=== PATIENT | male | born 2000 | race Hispanic/Latino ===

== ENCOUNTER 2021-05-20 17:45 | Inpatient (IN) | payer OTHER, SELFPAY ==
[2021-05-20] MEDS ORDERED: FLU VACC QS2021-22(6MOS UP)/PF 60 MCG/0.5 ML SYRINGE IM ONE (19:15)
[2021-05-20] MEDS ORDERED: Sodium Chloride 0.9% 1,000 ML IV PRN ×4 (19:57)
[2021-05-20] MEDS ORDERED: Acetaminophen 325 MG TAB PO PRN (19:57)
[2021-05-20] MEDS ORDERED: D5 1/2 NS w/20 mEq KCL 1,000 ML IV PRN (19:57)
[2021-05-20] MEDS ORDERED: Dextrose 5 %-0.45 % NaCl 1,000 ML IV PRN (19:57)
[2021-05-20] MEDS ORDERED: NS 0.9% w/ 20 MEQ KCL 1,000 ML IV PRN ×2 (19:57)
[2021-05-20] MEDS ORDERED: Electrolyte Replacement Protocol IVPB SCH (19:57)
[2021-05-20] MEDS ORDERED: Acetaminophen 650 MG Suppository PR PRN (19:57)
[2021-05-20] MEDS: Famotidine 20 MG TAB PO SCH (20:29)
[2021-05-20] MEDS: D5 1/2 NS w/20 mEq KCL 1,000 ML IV SCH (20:30)
[2021-05-20] MEDS ORDERED: Enoxaparin Sodium 40 MG/0.4 ML SYRINGE SC SCH (20:30)
[2021-05-20 20:31] LABS: Calcium 9.5 mg/dL (7.8-10.44); Chloride 106 mmol/L (98-107); Potassium 3.3 mmol/L (3.5-5.1); Sodium 134 mmol/L (136-145)
[2021-05-20 20:55] LABS: BUN (Urea Nitrogen) 8 mg/dL (8.4-21.0); Calc. Creatinine Clearance 118 mL/min (70-130); Glucose 288 mg/dL (70-105)
[2021-05-20 20:56] LABS: Carbon Dioxide Less than 8 mmol/L (22-29)
[2021-05-20 21:04] LABS: Cardiac Risk 57.5 (Less than 4.5); Cholesterol 460 mg/dl (< 200 Desired); HDL Cholesterol 8 mg/dL (>60 Neg Risk)
[2021-05-20 21:07] LABS: Lipase 105 U/L (8-78); Triglycerides Greater than 3800 mg/dL (Less than 150)
[2021-05-20 22:31] LABS: Bilirubin Neg (Negative); Blood, Urine Negative (Negative); Clarity Clear (Clear); Glucose, Urine (Dipstick) >=1000 mg/dL (Negative); Ketone, Urine 150 mg/dL (Negative); Leukocyte Negative (Negative); Nitrite Negative (Negative); Protein, Urine (Dipstick) Negative (Neg-Trace); Urobilinogen Normal mg/dL (Less than 2)
[2021-05-20 22:32] LABS: Urine Culture Reflex No No
[2021-05-20 22:39] LABS: Bacteria/HPF None Seen HPF (None Seen); RBC/HPF 0-3 HPF (0-3); Squamous Epithelial 0-3 HPF (0-3); WBC/HPF None Seen HPF (0-3)
[2021-05-20] MEDS: Potassium Chloride 20 MEQ TAB PO SCH (22:58)
[2021-05-21] MEDS: Cephalexin 500 MG CAP PO SCH ×5 (00:05→23:13)
[2021-05-21] MEDS: Potassium Chloride 20 MEQ TAB PO SCH (00:05)
[2021-05-21] MEDS: D5 1/2 NS w/20 mEq KCL 1,000 ML IV SCH ×3 (00:09→08:35)
[2021-05-21 01:09] LABS: Anion Gap 17 mmol/L (10-20); BUN (Urea Nitrogen) 7 mg/dL (8.4-21.0); Calc. Creatinine Clearance 120 mL/min (70-130); Calcium 8.2 mg/dL (7.8-10.44); Carbon Dioxide 13 mmol/L (22-29); Chloride 108 mmol/L (98-107); Glucose 307 mg/dL (70-105); Potassium 3.4 mmol/L (3.5-5.1); Sodium 135 mmol/L (136-145)
[2021-05-21] MEDS: INSULIN REGULAR IN 0.9 % NACL 100 UNIT in Premix Bag 1 BAG IVPB SCH ×2 (02:02→08:36)
[2021-05-21 03:50] LABS: Anion Gap 17 mmol/L (10-20); BUN (Urea Nitrogen) 7 mg/dL (8.4-21.0); Calc. Creatinine Clearance 114 mL/min (70-130); Calcium 8.4 mg/dL (7.8-10.44); Carbon Dioxide 15 mmol/L (22-29); Chloride 109 mmol/L (98-107); Glucose 256 mg/dL (70-105); Sodium 137 mmol/L (136-145)
[2021-05-21 03:52] LABS: Potassium 3.6 mmol/L (3.5-5.1)
[2021-05-21] MEDS ORDERED: Potassium Chloride 20 MEQ TAB PO SCH ×2 (05:30→11:00)
[2021-05-21] MEDS: Fenofibrate Nanocrystallized 145 MG TAB PO SCH (08:36)
[2021-05-21] MEDS: Famotidine 20 MG TAB PO SCH ×2 (08:36→20:10)
[2021-05-21] MEDS: Enoxaparin Sodium 40 MG/0.4 ML SYRINGE SC SCH (08:36)
[2021-05-21 09:20] LABS: Hemoglobin 13.1 g/dL (13.5-17.5); Mean Corpuscular HGB CONC 35.4 g/dL (32.0-36.0); Mean Corpuscular Hemoglobin 33.3 pg (27.0-33.0); Mean Corpuscular Volume 94.2 fl (81.2-95.1); Mean Platelet Volume 11.9 fl (7.4-10.4); Platelet Count 217 10x3/uL (150-450); RBC Distribution Width 13.6 % (11.5-14.5); White Blood Cell (WBC) Count 6.2 10x3/uL (3.5-10.5)
[2021-05-21 09:42] LABS: #Basophils 0.1 10x3/uL (0.0-0.2); #Eosinphils 0.1 10x3/uL (0.0-0.5); #Monocytes 0.4 10x3/uL (0.0-1.1); #Neutrophils 3.3 10x3/uL (1.5-8.4); %Basophils 0.8 % (0.0-2.0); %Eosinophils 1.6 % (0.0-6.0); %Lymphocytes 37.3 % (18.0-47.0); %Monocytes 6.8 % (0.0-10.0)
[2021-05-21 09:47] LABS: Glucose 151 mg/dL (70-105)
[2021-05-21] MEDS ORDERED: INSULIN REGULAR IN 0.9 % NACL 100 UNIT in Premix Bag 1 BAG IVPB SCH (10:16)
[2021-05-21] MEDS ORDERED: Dextrose 50% Abboject 50 ML SYRINGE SLOW IVP PRN (10:22)
[2021-05-21] MEDS ORDERED: Dextrose 5% in Water 1,000 ML IV PRN (10:22)
[2021-05-21 10:46] LABS: Glucose 273 mg/dL (70-105)
[2021-05-21] MEDS ORDERED: Lantus 1000 UNITS/10 ML VIAL SC SCH ×3 (11:00→21:00)
[2021-05-21 11:46] LABS: Hemoglobin A1c 10.6 % (4.0-6.0)
[2021-05-21 12:16] LABS: Anion Gap 12 mmol/L (10-20); BUN (Urea Nitrogen) 7 mg/dL (8.4-21.0); Calc. Creatinine Clearance 139 mL/min (70-130); Calcium 8.4 mg/dL (7.8-10.44); Carbon Dioxide 21 mmol/L (22-29); Chloride 105 mmol/L (98-107); Glucose 284 mg/dL (70-105); Potassium 3.9 mmol/L (3.5-5.1); Sodium 134 mmol/L (136-145)
[2021-05-21] MEDS: HumaLOG 300 UNITS/3 ML VIAL SC PRN ×3 (12:37→23:13)
[2021-05-21 13:02] LABS: Glucose 237 mg/dL (70-105)
[2021-05-21 15:30] LABS: Anion Gap 15 mmol/L (10-20); BUN (Urea Nitrogen) 9 mg/dL (8.4-21.0); Calc. Creatinine Clearance 152 mL/min (70-130); Calcium 8.4 mg/dL (7.8-10.44); Carbon Dioxide 18 mmol/L (22-29); Chloride 105 mmol/L (98-107); Glucose 226 mg/dL (70-105); Potassium 5.3 mmol/L (3.5-5.1); Sodium 133 mmol/L (136-145)
[2021-05-21] MEDS ORDERED: Atorvastatin Calcium 10 MG TAB PO SCH (21:00)
[2021-05-21 22:42] LABS: Anion Gap 17 mmol/L (10-20); BUN (Urea Nitrogen) 8 mg/dL (8.4-21.0); Calc. Creatinine Clearance 145 mL/min (70-130); Calcium 8.8 mg/dL (7.8-10.44); Carbon Dioxide 22 mmol/L (22-29); Chloride 101 mmol/L (98-107); Glucose 193 mg/dL (70-105); Potassium 4.4 mmol/L (3.5-5.1); Sodium 136 mmol/L (136-145)
[2021-05-22 02:03] VITALS: BMI 20.2
[2021-05-22 04:51] LABS: Anion Gap 16 mmol/L (10-20); BUN (Urea Nitrogen) 8 mg/dL (8.4-21.0); Calc. Creatinine Clearance 167 mL/min (70-130); Calcium 8.9 mg/dL (7.8-10.44); Carbon Dioxide 24 mmol/L (22-29); Chloride 101 mmol/L (98-107); Glucose 97 mg/dL (70-105); Sodium 138 mmol/L (136-145)
[2021-05-22 04:53] LABS: Potassium 3.2 mmol/L (3.5-5.1)
[2021-05-22] MEDS: Lantus 1000 UNITS/10 ML VIAL SC SCH ×2 (05:21→14:10)
[2021-05-22] MEDS: Cephalexin 500 MG CAP PO SCH ×2 (05:21→13:09)
[2021-05-22] MEDS ORDERED: Potassium Chloride 20 MEQ TAB PO SCH ×2 (05:30→09:30)
[2021-05-22] MEDS: Fenofibrate Nanocrystallized 145 MG TAB PO SCH (08:14)
[2021-05-22] MEDS: Famotidine 20 MG TAB PO SCH (08:14)
[2021-05-22] MEDS: Enoxaparin Sodium 40 MG/0.4 ML SYRINGE SC SCH (08:14)
[2021-05-22 09:13] LABS: Anion Gap 20 mmol/L (10-20); BUN (Urea Nitrogen) 7 mg/dL (8.4-21.0); Calc. Creatinine Clearance 187 mL/min (70-130); Calcium 8.9 mg/dL (7.8-10.44); Carbon Dioxide 20 mmol/L (22-29); Chloride 102 mmol/L (98-107); Glucose 77 mg/dL (70-105); Sodium 139 mmol/L (136-145)
[2021-05-22 09:17] LABS: Potassium 2.9 mmol/L (3.5-5.1)
[2021-05-22] MEDS: Potassium Chloride 20 MEQ in Premix Bag 1 BAG IVPB SCH ×2 (09:35→11:39)
[2021-05-22] MEDS: HumaLOG 300 UNITS/3 ML VIAL SC PRN (11:46)
[2021-05-22 13:21] VITALS: BP 103/74; TEMP 98.3
[2021-05-22 14:40] LABS: Anion Gap 15 mmol/L (10-20); BUN (Urea Nitrogen) 8 mg/dL (8.4-21.0); Calc. Creatinine Clearance 140 mL/min (70-130); Calcium 8.8 mg/dL (7.8-10.44); Carbon Dioxide 21 mmol/L (22-29); Chloride 104 mmol/L (98-107); Glucose 317 mg/dL (70-105); Potassium 4.2 mmol/L (3.5-5.1); Sodium 136 mmol/L (136-145)
== END 2021-05-22 15:28 | disposition home or self-care (01) | DRG 637 ==
LOC: CSHIMCU 17:45
PROVIDERS: ADMIT Family Medicine; ATTEND Family Medicine
DX: E10.10 Type 1 diabetes mellitus with ketoacidosis without coma (principal); K85.90 Acute pancreatitis without necrosis or infection, unspecified; L03.011 Cellulitis of right finger; R63.4 Abnormal weight loss; Z68.20 Body mass index [BMI] 20.0-20.9, adult
CPT/HCPCS: 36415; 36416; 80048; 80061; 83036; 83690; 84443; 84478; 85025; 93005; 93010; J1650; J1815; J3480

== ENCOUNTER 2021-09-17 13:08 | Inpatient (IN) | payer OTHER, SELFPAY ==
[2021-09-17 14:50] LABS: Actual Bicarbonate (HCO3v) 19 mEq/L (22-28); Base Excess -5.7 mEq/L (-2.0 to +3.0); Calcium, Ionized (venous) 1.11 mmol/L (1.16-1.32); Chloride (VBG) 105 mmol/L (98-106); Hemoglobin (Hb) 13.6 g/dL (13.2-17.3); Potassium (VBG) 4.34 mmol/L (3.70-5.30); Puncture Site Other Site; RapidComm Collect By CBL; Sodium 137.9 mmol/L (133-146); pH (venous) 7.34 (7.32-7.43)
[2021-09-17 15:09] LABS: ALT (SGPT) 33 U/L (8-55); AST (SGOT) 20 U/L (10-45); Acetaminophen Less than 10.0 mcg/mL (10.0-30.0); Albumin 4.1 g/dL (3.5-5.0); Alcohol Less than 10 mg/dL (Less than 10); Alkaline Phosphatase 118 U/L (50-130); Anion Gap 25 mmol/L (10-20); BUN (Urea Nitrogen) 14 mg/dL (8.4-21.0); Bilirubin, Total 0.6 mg/dL (0.2-1.2); Calc. Creatinine Clearance 0 mL/min (70-130); Calcium 9.1 mg/dL (7.8-10.44); Carbon Dioxide 15 mmol/L (22-29); Chloride 101 mmol/L (98-107); Globulin 3.3 g/dL (2.4-3.5); Glucose 425 mg/dL (70-105); Potassium 4.2 mmol/L (3.5-5.1); Protein, Total 7.4 g/dL (6.0-8.3); Salicylate Less than 8.0 mg/dL (15.0-30.0); Sodium 137 mmol/L (136-145)
[2021-09-17] MEDS ORDERED: INSULIN REGULAR IN 0.9 % NACL 100 UNIT/100 ML BAG ONE (15:36)
[2021-09-17 15:44] LABS: Mean Corpuscular Volume 91.5 fl (81.2-95.1); Mean Platelet Volume 10.3 fl (7.4-10.4); Platelet Count 260 10x3/uL (150-450); RBC Distribution Width 12.4 % (11.5-14.5); Red Blood Cell (RBC) Count 4.34 10x6/uL (4.32-5.72); White Blood Cell (WBC) Count 6.4 10x3/uL (3.5-10.5)
[2021-09-17 15:45] LABS: MDiff Complete? YES
[2021-09-17] MEDS ORDERED: NS 0.9% w/ 20 MEQ KCL 1,000 ML ONE (16:01)
[2021-09-17] MEDS ORDERED: Ondansetron ODT 4 MG TAB PO PRN (16:18)
[2021-09-17] MEDS ORDERED: Dextrose 5 %-0.45 % NaCl 1,000 ML IV PRN (16:18)
[2021-09-17] MEDS ORDERED: Sodium Chloride 0.9% 1,000 ML IV PRN ×4 (16:18)
[2021-09-17] MEDS ORDERED: Acetaminophen 325 MG TAB PO PRN (16:18)
[2021-09-17] MEDS ORDERED: Ondansetron PF 4 MG/2 ML Vial IVP PRN (16:18)
[2021-09-17] MEDS ORDERED: Electrolyte Replacement Protocol 1 EACH IVPB PRN (16:18)
[2021-09-17] MEDS ORDERED: NS 0.9% w/ 20 MEQ KCL 1,000 ML IV PRN ×2 (16:18)
[2021-09-17 16:20] LABS: Lymphocytes 63 % (28-48); Monocytes 6 % (0-4); Neutrophil 31 % (31-61)
[2021-09-17 16:21] LABS: Diff Comment (RBC Morph SCRN) NORMAL; Platelet Morphology Comment Appears Adequate
[2021-09-17] MEDS ORDERED: INSULIN REGULAR IN 0.9 % NACL 100 UNIT in Premix Bag 1 BAG IVPB SCH (17:45)
[2021-09-17 18:13] LABS: Anion Gap 18 mmol/L (10-20); BUN (Urea Nitrogen) 12 mg/dL (8.4-21.0); Calc. Creatinine Clearance 0 mL/min (70-130); Calcium 8.3 mg/dL (7.8-10.44); Carbon Dioxide 16 mmol/L (22-29); Chloride 109 mmol/L (98-107); Glucose 219 mg/dL (70-105); Potassium 3.7 mmol/L (3.5-5.1); Sodium 139 mmol/L (136-145)
[2021-09-17] MEDS ORDERED: D5 1/2 NS w/20 mEq KCL 1,000 ML ONE (18:36)
[2021-09-17 19:45] LABS: Hemoglobin A1c 9.7 % (4.0-6.0)
[2021-09-17 20:23] VITALS: BMI 20.2
[2021-09-17 21:09] LABS: Anion Gap 22 mmol/L (10-20); BUN (Urea Nitrogen) 8 mg/dL (8.4-21.0); Calc. Creatinine Clearance 152 mL/min (70-130); Carbon Dioxide 12 mmol/L (22-29); Chloride 107 mmol/L (98-107); Glucose 174 mg/dL (70-105); Potassium 3.5 mmol/L (3.5-5.1); Sodium 137 mmol/L (136-145)
[2021-09-17] MEDS: Famotidine/PF 20 mg/2ml Vial SLOW IVP SCH (22:00)
[2021-09-17 22:43] LABS: Magnesium 1.5 mg/dL (1.7-2.2); Phosphorus 2.4 mg/dL (2.3-4.7)
[2021-09-17 22:52] LABS: Bilirubin Neg (Negative); Blood, Urine Negative (Negative); Clarity Clear (Clear); Glucose, Urine (Dipstick) >=1000 mg/dL (Negative); Ketone, Urine 150 mg/dL (Negative); Leukocyte Negative (Negative); Nitrite Negative (Negative); Protein, Urine (Dipstick) Negative (Neg-Trace); Specific Gravity, Urine 1.015 (1.002-1.036); Urobilinogen Normal mg/dL (Less than 2)
[2021-09-17 22:58] LABS: SARS-CoV-2 NAA Rapid Test Not Detected (NotDetected)
[2021-09-17 23:05] LABS: Urine Culture Reflex No No
[2021-09-17 23:06] LABS: Bacteria/HPF None Seen HPF (None Seen); RBC/HPF 0-3 HPF (0-3); Squamous Epithelial 0-3 HPF (0-3); WBC/HPF 0-3 HPF (0-3)
[2021-09-17] MEDS ORDERED: Potassium Chloride 20 MEQ TAB PO SCH (23:15)
[2021-09-17] MEDS ORDERED: Magnesium 2 GM/50 ML(in water) 2 GM in Premix Bag 1 BAG IVPB SCH (23:15)
[2021-09-17] MEDS: D5 1/2 NS w/20 mEq KCL 1,000 ML IV PRN (23:22)
[2021-09-18] MEDS: Famotidine 20 MG TAB PO SCH ×3 (01:33→21:46)
[2021-09-18 01:38] LABS: Anion Gap 24 mmol/L (10-20); BUN (Urea Nitrogen) 6 mg/dL (8.4-21.0); Calc. Creatinine Clearance 162 mL/min (70-130); Calcium 8.3 mg/dL (7.8-10.44); Carbon Dioxide 10 mmol/L (22-29); Chloride 105 mmol/L (98-107); Glucose 105 mg/dL (70-105); Potassium 3.2 mmol/L (3.5-5.1); Sodium 136 mmol/L (136-145)
[2021-09-18 02:06] LABS: Glucose 99 mg/dL (70-105)
[2021-09-18 02:47] LABS: Glucose 96 mg/dL (70-105)
[2021-09-18] MEDS: D5 1/2 NS w/20 mEq KCL 1,000 ML IV PRN ×2 (03:25→08:24)
[2021-09-18 04:12] LABS: Glucose 126 mg/dL (70-105)
[2021-09-18 04:16] LABS: Phosphorus 2.2 mg/dL (2.3-4.7)
[2021-09-18 04:29] LABS: Cholesterol 612 mg/dl (< 200 Desired)
[2021-09-18 04:30] LABS: HDL Cholesterol 13 mg/dL (>60 Neg Risk); Triglycerides Greater than 3800 mg/dL (Less than 150)
[2021-09-18 05:08] LABS: ALT (SGPT) 23 U/L (8-55); AST (SGOT) 15 U/L (10-45); Albumin 3.4 g/dL (3.5-5.0); Alkaline Phosphatase 75 U/L (50-130); Anion Gap 16 mmol/L (10-20); BUN (Urea Nitrogen) 5 mg/dL (8.4-21.0); Bilirubin, Total 0.5 mg/dL (0.2-1.2); Calc. Creatinine Clearance 162 mL/min (70-130); Calcium 8.1 mg/dL (7.8-10.44); Carbon Dioxide 20 mmol/L (22-29); Chloride 104 mmol/L (98-107); Globulin 4.1 g/dL (2.4-3.5); Glucose 126 mg/dL (70-105); Magnesium 2.2 mg/dL (1.7-2.2); Potassium 3.5 mmol/L (3.5-5.1); Protein, Total 7.5 g/dL (6.0-8.3); Sodium 136 mmol/L (136-145)
[2021-09-18 05:13] LABS: Glucose 187 mg/dL (70-105)
[2021-09-18 06:11] LABS: Glucose 203 mg/dL (70-105)
[2021-09-18] MEDS ORDERED: Potassium Chloride 20 MEQ TAB PO SCH (06:15)
[2021-09-18] MEDS: Famotidine/PF 20 mg/2ml Vial SLOW IVP SCH (08:25)
[2021-09-18] MEDS: Enoxaparin Sodium 40 MG/0.4 ML SYRINGE SC SCH (08:25)
[2021-09-18] MEDS: Pantoprazole 40 MG VIAL IVP SCH (08:25)
[2021-09-18] MEDS ORDERED: Dextrose 50% Abboject 50 ML SYRINGE SLOW IVP PRN (08:48)
[2021-09-18] MEDS ORDERED: Dextrose 5% in Water 1,000 ML IV PRN (08:48)
[2021-09-18] MEDS ORDERED: HumaLOG 300 UNITS/3 ML VIAL SC PRN (08:48)
[2021-09-18 08:57] LABS: Glucose 168 mg/dL (70-105)
[2021-09-18] MEDS ORDERED: NPH, Human Insulin Isophane 300 UNIT/3 ML VIAL SC SCH (09:00)
[2021-09-18 09:36] LABS: Hemoglobin 13.7 g/dL (13.5-17.5); Mean Corpuscular HGB CONC 41.8 g/dL (32.0-36.0); Mean Corpuscular Hemoglobin 36.7 pg (27.0-33.0); Mean Corpuscular Volume 88.8 fl (81.2-95.1); Platelet Count 251 10x3/uL (150-450); RBC Distribution Width 12.8 % (11.5-14.5); Red Blood Cell (RBC) Count 4.03 10x6/uL (4.32-5.72); White Blood Cell (WBC) Count 6.4 10x3/uL (3.5-10.5)
[2021-09-18 09:42] LABS: MDiff Complete? YES
[2021-09-18 09:50] LABS: Eosinophils 1 % (0-10); Lymphocytes 49 % (28-48); Monocytes 7 % (0-4); Neutrophil 43 % (31-61)
[2021-09-18 09:55] LABS: Platelet Morphology Comment Appears Adequate; RBC Morphology Normal
[2021-09-18 10:30] LABS: Potassium 4.5 mmol/L (3.5-5.1)
[2021-09-18 10:31] VITALS: BP 106/69
[2021-09-18 11:45] LABS: Troponin I Less than 0.010 ng/mL (< 0.028)
[2021-09-18 12:41] LABS: Glucose 203 mg/dL (70-105)
[2021-09-18] MEDS: HumaLOG 300 UNITS/3 ML VIAL SC PRN ×2 (13:32→16:35)
[2021-09-18 16:14] LABS: Glucose 246 mg/dL (70-105)
[2021-09-18] MEDS ORDERED: Atorvastatin Calcium 10 MG TAB PO SCH (21:00)
[2021-09-18 21:17] LABS: Glucose 218 mg/dL (70-105)
[2021-09-18] MEDS: NPH, Human Insulin Isophane 300 UNIT/3 ML VIAL SC SCH (21:51)
[2021-09-19 04:17] LABS: ALT (SGPT) 29 U/L (8-55); Albumin 3.8 g/dL (3.5-5.0); Alkaline Phosphatase 66 U/L (50-130); Anion Gap 20 mmol/L (10-20); BUN (Urea Nitrogen) 8 mg/dL (8.4-21.0); Bilirubin, Total 0.6 mg/dL (0.2-1.2); Calc. Creatinine Clearance 157 mL/min (70-130); Calcium 9.3 mg/dL (7.8-10.44); Carbon Dioxide 20 mmol/L (22-29); Chloride 102 mmol/L (98-107); Globulin 3.5 g/dL (2.4-3.5); Glucose 98 mg/dL (70-105); Magnesium 1.7 mg/dL (1.7-2.2); Potassium 3.1 mmol/L (3.5-5.1); Protein, Total 7.3 g/dL (6.0-8.3); Sodium 139 mmol/L (136-145)
[2021-09-19 04:24] LABS: #Eosinphils 0.1 10x3/uL (0.0-0.5); #Monocytes 0.1 10x3/uL (0.0-1.1); #Neutrophils 1.3 10x3/uL (1.5-8.4); %Basophils 1.2 % (0.0-2.0); %Eosinophils 2.9 % (0.0-6.0); %Lymphocytes 36.9 % (18.0-47.0); %Monocytes 4.5 % (0.0-10.0); %Neutrophils 54.1 % (40.0-75.0)
[2021-09-19 04:27] LABS: Red Blood Cell (RBC) Count 4.59 10x6/uL (4.32-5.72); White Blood Cell (WBC) Count 4.9 10x3/uL (3.5-10.5)
[2021-09-19 04:28] LABS: Hemoglobin 12.9 g/dL (13.5-17.5); Mean Corpuscular Volume 87.6 fl (81.2-95.1)
[2021-09-19 04:29] LABS: Mean Corpuscular Hemoglobin 32.2 pg (27.0-33.0); Mean Platelet Volume 10.5 fl (7.4-10.4); Platelet Count 207 10x3/uL (150-450); Platelet Morphology Comment Appears Adequate; RBC Morphology Normal
[2021-09-19] MEDS ORDERED: Potassium Chloride 20 MEQ TAB PO SCH (04:30)
[2021-09-19] MEDS ORDERED: Magnesium 2 GM/50 ML(in water) 2 GM in Premix Bag 1 BAG IVPB SCH (04:30)
[2021-09-19] MEDS: Famotidine 20 MG TAB PO SCH (07:57)
[2021-09-19] MEDS: Enoxaparin Sodium 40 MG/0.4 ML SYRINGE SC SCH (07:57)
[2021-09-19] MEDS: Pantoprazole 40 MG VIAL IVP SCH (07:57)
[2021-09-19] MEDS: NPH, Human Insulin Isophane 300 UNIT/3 ML VIAL SC SCH (07:58)
[2021-09-19] MEDS ORDERED: Fenofibrate Nanocrystallized 145 MG TAB PO SCH (09:00)
[2021-09-19 09:54] LABS: Potassium 4.6 mmol/L (3.5-5.1)
[2021-09-19 12:17] LABS: Glucose 235 mg/dL (70-105)
== END 2021-09-19 11:36 | disposition home or self-care (01) | DRG 639 ==
LOC: SUATTDRO 13:08 → CSHERS 13:08 → CSHICU 18:24
PROVIDERS: ADMIT Family Medicine; ATTEND Hospitalist
DX: E10.10 Type 1 diabetes mellitus with ketoacidosis without coma (principal); Z20.822 Contact with and (suspected) exposure to COVID-19; K21.9 Gastro-esophageal reflux disease without esophagitis; E78.1 Pure hyperglyceridemia; F17.210 Nicotine dependence, cigarettes, uncomplicated; Z79.4 Long term (current) use of insulin; Z79.899 Other long term (current) drug therapy; Z91.14 Patient's other noncompliance with medication regimen; Z91.11 Patient's noncompliance with dietary regimen
CPT/HCPCS: 36415; 36416; 71045; 80048; 80053; 80061; 80307; 81001; 82010; 82805; 83036; 83690; 83735; 83930; 84100; 84443; 84478; 84484; 85025; 93005; 93010; 93306; 94760; C9113; J1650; J1815; J3475; J3480; S0028